=== PATIENT | female | born 1955 | race Caucasian/White ===

== ENCOUNTER 2019-03-07 06:31 | Inpatient (IN) ==
[~2019-03-07 06:31] MED LIST: RINGER'S SOLUTION,LACTATED 1,000 ML IV PRN; ceFAZolin SODIUM 1 GM VIAL IV PRN
[2019-03-07] MEDS ORDERED: LIDOCAINE HCL 20 ML VIAL ONE (07:01)
[2019-03-07] MEDS ORDERED: ONDANSETRON HCL/PF 2 MG/ML VIAL ONE (07:01)
[2019-03-07] MEDS ORDERED: PROPOFOL VIAL IV ONE (07:02)
[2019-03-07] MEDS ORDERED: BUPIVACAINE HCL/EPINEPHRINE 50 ML VIAL ONE (07:02)
--- NOTE | 2019-03-07 07:39 | ANES ---
Anesthesia Pre Procedure Eval Vitals/Labs: Last Vital Signs Temp 36.6 C 03/07/19 06:43 Pulse 68 03/07/19 06:43 Resp 16 03/07/19 06:43 BP 153/62 H 03/07/19 06:43 Pulse Ox 100 03/07/19 06:43 HOME MEDICATIONS Cyanocobalamin [Vitamin B-12] 1,000 mcg PO DAILY 05/30/14 [Last Taken 11/29/17] Promethazine HCl 12.5 mg PO Q8H PRN 10/24/14 [Last Taken Unknown] aspirin 81 mg tablet,delayed release 81 mg PO DAILY 10/27/17 [Last Taken 02/28/19] citalopram 20 mg tablet 20 mg PO DAILY 10/27/17 [Last Taken 11/29/17] Atorvastatin Calcium [Lipitor] 40 mg PO DAILY 11/30/17 [Last Taken 11/29/17] Cholecalciferol (Vitamin D3) [Vitamin D3] 10,000 unit PO DAILY 11/30/17 [Last Taken 11/29/17] hydroxyzine HCl 50 mg tablet 50 mg PO BID PRN tab 11/21/18 [Last Taken Unknown] Ranitidine HCl [Zantac] 150 mg PO BID 03/07/19 [Last Taken Unknown] Allergies/Adverse Reactions: Allergies Allergy/AdvReac Type Severity Reaction Status Date / Time acetaminophen [From Tylenol] Allergy Severe Anaphylaxis Verified 03/07/19 07:00 hydroxychloroquine Allergy Intermediate Redness Verified 03/07/19 07:00 [Hydroxychloroquine] Penicillins Allergy Intermediate Hives Verified 03/07/19 07:00 adhesive tape AdvReac Mild Rash Verified 03/07/19 07:00 Sulfa (Sulfonamide AdvReac Mild Rash Verified 03/07/19 07:00 Antibiotics) Tylenol Extra Strength Allergy Severe Anaphylaxis Uncoded 03/07/19 07:00 - Planned Procedure Planned Procedure: rt Total Shoulder Reverse Medication List Reviewed:: Yes Allergies Verified: Yes Medical History (Last Reviewed 03/07/19 @ 07:36 by Jignesh Garcia CRNA) Ankle fracture Current smoker 1 ppd Former consumption of alcohol Gastric ulcer Osteoporosis Wears dentures Wears glasses stress heart attack Onset Date: ~10/03/14 Avitaminosis D Onset Date: 04/2014 Cardiomyopathy Onset Date: Unknown Chronic kidney disease (CKD) stage G4/A1, severely decreased glomerular filtration rate (GFR) between 15-29 mL/min/1.73 square meter and albuminuria creatinine ratio less than 30 mg/g Onset Date: 01/2014 Coronary artery disease Onset Date: 06/2016 Depression Onset Date: Unknown GERD (gastroesophageal reflux disease) Onset Date: Unknown 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 Boss History of appendectomy Onset Date: 1979 History of colonoscopy Onset Date: 2012 History of endoscopy Onset Date: 2012 R and L shoulder History of removal of ovarian cyst Onset Date: ~1979 at age 17-also, states "half of her stomach was removed" History of shoulder surgery Onset Date: 06/2013 ORIF greater tuberosity right shoulder Hx of tonsillectomy Onset Date: ~1962 S/P hardware removal Onset Date: 06/2014 right shoulder Status post wrist surgery Onset Date: 2011 right wrist- Dr. Joaquin Family History (Last Reviewed 03/07/19 @ 07:37 by Jignesh Garcia CRNA) Father Cancer lung cancer and prostate cancer Mother CHF (congestive heart failure) Diabetes Hypertension Brother Cancer lung cancer Brother Hypertension Sister Unknown whether patient has any health problems Sister Unknown whether patient has any health problems Sister Unknown whether patient has any health problems - Family Anesthesia History Family History:: no untoward family reactions to anesthesia - Airway/Neck/Teeth Within Normal Limits:: Yes Denture Type: Full upper, Full lower Neck Exam: full range of motion Mallampatti Score: 2 Thyromental (T-M) distance: > 6 cm Mandibulo Hyoid distance: > 3 cm - Respiratory Respiratory Physical: decreased breath sounds Smoking Status: Current every day smoker Discussed smoking cessation including day of surgery: Yes - Cardiovascular Cardiac History: [facility] Tolerate Activity: Fair Heart Sounds: S1 & S2, Regular - Gastrointestinal NPO since: MN - Anesthesia Assessment and Plan ASA Class: PS, III Anesthesia Type Plan: General LMA Planned difficult intubation/equipment available: No - Interscalene nerve block for postop analgesia
[2019-03-07] MEDS ORDERED: ZOLPIDEM TARTRATE 5 MG TABLET PO PRN (10:56)
[2019-03-07] MEDS ORDERED: ONDANSETRON HCL/PF 2 MG/ML VIAL IV PRN (10:56)
[2019-03-07] MEDS ORDERED: MAGNESIUM HYDROXIDE 30 ML UDC PO PRN (10:56)
[2019-03-07] MEDS ORDERED: diphenhydrAMINE HCL 50 MG/ML VIAL IV PRN (10:56)
[2019-03-07] MEDS ORDERED: MORPHINE SULFATE 2 MG/ML DISP.SYRIN IV PRN (10:56)
[2019-03-07] MEDS ORDERED: MAG HYDROX/ALUMINUM HYD/SIMETH 30 ML UDC PO PRN (10:56)
--- NOTE | 2019-03-07 11:01 | OR ---
Operative Report - Dictated Report Narrative: Date: 03/07/19 Surgeon: Jerzy Boss M.D. Certified Nutritionist: Owen Call PA-C provided a set of essential, skilled, educated hands that assisted in positioning, transfer, retraction, manipulation, irrigation, closure of wounds, and placement of dressings all of which could not be provided by the available surgical crew. Preoperative diagnosis: Right shoulder post-traumatic arthritis Postoperative diagnosis: Right shoulder post-traumatic arthritis Procedure: Right cemented reverse total shoulder arthroplasty Anesthesia: General plus regional Complications: None Estimated blood loss: 150 mL Specimens: Bone for disposal Retained implants: Manny Delta Xtend cemented monobloc size 1/10 stem Manny Delta Xtend cementless metaglene and associated screws Manny Delta Xtend standard 38 mm glenosphere Manny Delta Xtend 38 mm/+6 poly cup Drains: None Indications: Aaliyah is a 63 year-old female who has been followed in my clinic with complaints of shoulder pain consistent with post-traumatic arthritis from an old proximal humerus fracture. Physical exam and diagnostic imaging were consistent with this. Conservative measures have failed including, but not limited to, passage of time, activity modification, medications, physical therapy/home ex ercise program, or injections. The risks, benefits, and alternatives were discussed in clinic. The risks being , bleeding, infection, blood clots, nerve, blood vessel injury, implant loosening/failure, persistent pain, stiffness, need for prolonged therapy, need for additional procedures, and persistent symptoms. Consent was obtained in the clinic. Procedure: After marking the correct extremity in the preoperative holding area, a timeout was performed in the operating room. IV antibiotics consisting of 1 g of Ancef were administered prior to the procedure. A general followed by regional anesthetic was induced by the nurse unix systems administrator. This was in the supine position, then the patient was transitioned to a beachchair position with all bony prominences well-padded, head in neutral, the nonoperative arm well supported, and the legs padded with SCDs in place. The operative shoulder was then prepped and draped in a standard sterile fashion. Preoperatively the shoulder had full passive range of motion and no instability. Her previous deltopectoral incision was utilized. The skin was incised and dissection with a combination of electrocautery and Metzenbaum scissors was carried down through the subcutaneous tissue. The deltopectoral fascia was identified and the interval was developed using a combination of blunt finger dissection and dissection with Metzenbaum scissors. The cephalic vein was identified and was diminutive. This had some bleeding so it was cauterized. The deltoid was retracted laterally and the pectoralis major muscle retracted medially revealing the anterior capsule of the shoulder and the conjoined tendon. The biceps tendon and bicipital groove was palpated and the tissue overlying this was incised revealing the biceps tendon. The lesser tuberosity was palpated and the subscapularis tendon was tagged with a 0 Vicryl stitch. This was then divided sharply with a knife leaving a small cuff of tissue attached to the lesser tuberosity for later repair. Blunt finger dissection was used to dissect the subscapularis away from the anterior glenoid neck. At this point the glenohumeral joint was dislocated delivering the humeral head out of the wound. This was noted to be in a significant amount of varus and mild retroversion due to malunion of her old fracture. The majority of the supraspinatus was still attached to the greater tuberosity and the infraspinatus was intact. A starting point was marked out slightly more laterally than usual centered over the humeral canal. The entry reamer was advanced down into the intramedullary canal. Sequential hand reaming was carried out up to 10 mm with good cortical purchase. The humeral head cutting guide was then advanced down into place and set at 20 retroversion and the appropriate height. The cutting block was pinned into place and the rest of the jig was removed. The cutting block was then flipped over and an oscillating saw was used to make the humeral head cut. The protective cap was then placed over the cut end of the proximal humerus and this was then pushed posteriorly and inferiorly out of the way of the glenoid to give us good visualization of the glenoid. Attention was then turned to preparation of the glenoid. Glenoid retractors were placed anterior and posterior-inferiorly. Circumferential dissection was carried out around the glenoid releasing the capsule from the glenoid neck. The base of the coracoid was visualized and the medial scapular spine could be easily palpated. The labrum was then removed with a sharp knife. The pin guide was then placed on the glenoid to allow for inferior, slightly posterior, and slightly inferiorly tilted placement of our guide pin. This was advanced into the bone with good purchase. We confirmed appropriate position of her guidepin at this point. The central peg drill was then drilled over the guidepin. The cementless metaglene and was then impacted into place and placed in the appropriate rotation based on the location of the base of the coracoid and medial scapular spine. The superior and inferior screws were then drilled with good bone purchase. They were then measured and screws were placed with good purchase and good compression of the metaglene against the glenoid. The anterior and posterior screws were then drilled, measured, and placed. The superior and inferior locking screws were then locked into place. At this point we felt a 38 mm glenosphere was the appropriate size and the final glenosphere was screwed into the metaglene. Attention was turned back to the proximal humerus which was again delivered up and out of the wound. The proximal humeral reaming guide was then impacted into place in the appropriate rotation. The size 1 reaming guide was the appropriate size. The proximal humerus was then reamed out and additional bone was removed with a rongeur. The reaming guide was then removed and the proximal humerus was broached with the size 10 broach in the appropriate version. Stem. At this point, given her significant varus deformity and poor proximal bone, we elected to proceed with a cemented humeral stem. A size 1/10 monoblock trial was placed and found to be the appropriate size. This was trialed and we found that a 38 mm/+6 mm poly-gave the best stability while maintaining a full range of motion. The trial was then removed and the proximal humerus was thoroughly irrigated. A cement restrictor was placed in the canal at the appropriate depth. Modern cementing technique was then used to cement the final stem into place into a well irrigated and dry proximal humerus. We then rechecked the polyethylene trial and a 38 mm/+6 polyethylene was appropriate. The trial was removed and the shoulder was thoroughly irrigated. The final polyethylene was impacted into place and the shoulder was reduced. A final check showed full range of motion with good stability of our implant. The subscapularis was then repaired to the cuff of tissue on the lesser tuberosity using #2 FiberWire. The wound was once again copiously irrigated with normal saline and then closed in a layered fashion. The deltopectoral fascia was closed in an interrupted fashion with 0 Vicryl. Subcutaneous tissue was closed with interrupted 3-0 Vicryl in a deep dermal fashion. Skin was then closed with a running subcuticular 4-0 Monocryl and sealed with a Prineo dressing. The wound was then dressed with 4 x 4's, ABDs, and foam tape. All sponge, needle, blade, and instrument counts were correct prior to closing the wounds. The patient was awoken and transferred to the postanesthesia care unit in stable condition.
[2019-03-07] MEDS: oxyCODONE HCL 5 MG TABLET PO PRN ×2 (12:08→18:38)
[2019-03-07] MEDS: NORMAL SALINE 1,000 ML IV PRN (12:33)
--- NOTE | 2019-03-07 13:08 | ANES ---
Post Anesthesia Discharge - Transfer of Care Transfer of Care handoff given to nurse: Yes - Discharge from PACU Discharge from PACU when meets criteria: Yes
--- NOTE | 2019-03-07 13:09 | ANES ---
Post Anesthesia Assessment - Vital Signs Vitals: Last Vital Signs Temp 36.5 C 03/07/19 11:27 Pulse 72 03/07/19 11:27 Resp 20 03/07/19 11:27 BP 112/58 03/07/19 11:27 Pulse Ox 98 03/07/19 11:27 Airway Patency: Normal - Mental Status Level Of Consciousness: Awake - Pain Level Pain Score: 0 - N/V Assessment Nausea/Vomiting Presence: None Dehydration:: No
--- NOTE | 2019-03-07 13:23 | ANES ---
Anesthesia Procedure Note Procedure Note: ANESTHESIA PROCEDURE NOTE Date of procedure: 03/07/2019. Time of procedure: . Performed by: Juan Diego Garcia CRNA Painter Drum: Jennifer Gallegos RN . Preprocedure diagnosis: Right shoulder DJD. Post procedure diagnosis: Same. Procedure: Ultrasound-guided right interscalene nerve block Indications: Postoperative analgesia Findings: Patient was brought operating room #4 and given a general anesthetic induction. Patient is then placed in the semi-Calixto's position. The right side of patient's neck was prepped with ChloraPrep ultrasound is utilized to identify the brachial plexus in the right interscalene groove. A 22-gauge 2 inch regional block needle was advanced under ultrasound guidance until the tip of needle was placed superior to brachial plexus. Nerve stimulator was also utilized with muscle twitching noted from 0.8 to 0.5 mA. Muscle twitch disappeared at 0.45 mA. A total of 30 mL of 0.5% Marcaine with epinephrine 1- 200 injected with adequate spread of local anesthesia noted. Regional block needle was removed intact. EBL: Minimal. Fluids: N/A. Specimen: N/A. Post procedure condition: The patient tolerated the procedure well. No complications were noted. Thank you for this consultation Juan Diego Garcia CRNA
[2019-03-07] MEDS: ceFAZolin SODIUM 1 GM in DEXTROSE 5 % IN WATER 100 ML IV SCH ×4 (13:44→21:47)
[2019-03-07] MEDS ORDERED: SENNOSIDES/DOCUSATE SODIUM 1 TAB TABLET PO SCH (21:00)
[2019-03-08] MEDS: oxyCODONE HCL 5 MG TABLET PO PRN ×2 (00:38→09:22)
[2019-03-08] MEDS: NORMAL SALINE 1,000 ML IV PRN (02:09)
[2019-03-08] MEDS: ceFAZolin SODIUM 1 GM in DEXTROSE 5 % IN WATER 100 ML IV SCH ×2 (05:00)
--- NOTE | 2019-03-08 11:59 | DS ---
(1) Status post reverse total arthroplasty of right shoulder Problem: Acute Date of Discharge:: 03/08/19 Description of Stay: 63-year-old female postop day 1 status post a right reverse total shoulder arthroplasty. Patient has had an uncomplicated stay. She was admitted postoperatively to monitor for complications including surgical complications, pain management, return to p.o. diet, PT/OT. Patient has had no significant complications, she is tolerating p.o. diet, her pain is well controlled p.o. pain medication. She has no other acute surgical complications currently. Dressings were removed, pernio in place without significant drainage or erythema at wound. Exam today of right upper extremity reveals patient is neurologically intact, sensation intact light touch, c engineer strength 5/5, diffuse tenderness about right shoulder, surgical incision with dressings in place. Discussed with patient follow-up at 2 weeks postoperative, begin outpatient PT. Patient will also continue monitoring incision for acute changes. Patient will call orthopedic outpatient clinic with any acute questions or concerns. Patient will be discharged home. Procedures Performed: see notes below List Procedures: Right reverse total shoulder arthroplasty Discharge Location: Home Disposition: Home self-care Condition: Good Discharge Activity: Activity as tolerated, Non-Weight bearing - LUE, sling immobilizer in place Discharge Diet: General/regular food Referrals: Jerzy Boss MD [Staff Physician] - 03/22/19 9:45 am Print Language (Serbian or Divehi Available): Serbian Additional Patient Instructions (free text): Physical Therapy at [facility] rehab on Wednesday03/10/19 at 12:45pm. Follow up in the Orthopedic office with Dr. Boss 03/22/19 at 9:45a.m. Prescriptions (Any new or edited meds): oxyCODONE HCL [Oxycodone] 5 mg PO Q6H PRN #60 tab PRN Reason: Severe Pain (Pain Scale 7-10) Transmission Status: Received by [facility] #[id number] Complete Home Medications List: Complete Home Medication List: Cyanocobalamin [Vitamin B-12] 1,000 mcg PO DAILY 05/30/14 Promethazine HCl 12.5 mg PO Q8H PRN 10/24/14 aspirin 81 mg tablet,delayed release 81 mg PO DAILY 10/27/17 citalopram 20 mg tablet 20 mg PO DAILY 10/27/17 Atorvastatin Calcium [Lipitor] 40 mg PO DAILY 11/30/17 Cholecalciferol (Vitamin D3) [Vitamin D3] 10,000 unit PO DAILY 11/30/17 hydroxyzine HCl 50 mg tablet 50 mg PO BID PRN tab 11/21/18 Ranitidine HCl [Zantac] 150 mg PO BID 03/07/19 oxyCODONE HCL [Oxycodone] 5 mg PO Q6H PRN #60 tab 03/08/19 Amb Orders for Discharge: PT Evaluation and Treatment* Location: None Selected
[2019-03-08 13:06] VITALS: BP 129/65
== END 2019-03-08 13:00 | disposition home or self-care (01) | DRG 483 ==
LOC: MS 06:31
PROVIDERS: ADMIT Orthopaedic Surgery; ATTEND Orthopaedic Surgery
DX: K21.9 Gastro-esophageal reflux disease without esophagitis; Z96.619 Presence of unspecified artificial shoulder joint; M19.011 Primary osteoarthritis, right shoulder; Z68.1 Body mass index [BMI] 19.9 or less, adult; F17.210 Nicotine dependence, cigarettes, uncomplicated; R63.0 Anorexia
CPT/HCPCS: 73030; 97110; 97116; 97161; 97165; 97530; 97535; J2405